=== PATIENT | male | born 1960 | race Caucasian/White ===

== ENCOUNTER → 2021-01-17 | Outpatient (CLI) | payer BC, OTHER ==
[~2021-01-17] MED LIST: BYDUREON P2 MG/0.65 SQ; CRESTOR40 MG PO; DIABETA 5 MG TAB5 MG PO; HEARTBURN TREAT15 MG PO; LEXAPRO20 MG PO; NORCO 5-325 TA1 EACH PO; SUDAFED 12 HOU120 MG PO; VITAMIN B12-FO1 EACH PO; XIGDUO XR 5 MG1 EACH PO; ZYLOPRIM 100 M100 MG PO
== END ==
LOC: KOH-I 15:22
DX: F17.210 Nicotine dependence, cigarettes, uncomplicated (principal); R91.1 Solitary pulmonary nodule
CPT/HCPCS: 71271

== ENCOUNTER → 2022-01-20 | Outpatient (CLI) | payer BC | LOC: KOH-I 13:19 | DX: F17.210 Nicotine dependence, cigarettes, uncomplicated (principal); R91.1 Solitary pulmonary nodule | CPT/HCPCS: 71271 ==

== ENCOUNTER → 2022-07-09 | Outpatient (CLI) | payer BC | LOC: EXRD 07-04 13:00 | DX: R13.10 Dysphagia, unspecified (principal); E04.1 Nontoxic single thyroid nodule | CPT/HCPCS: 76536 ==